=== PATIENT | female | born 1945 | race Caucasian/White ===

== ENCOUNTER 2019-12-01 08:09 | Outpatient (REF) | payer MEDICARE, SELFPAY ==
[2019-12-01 10:24] LABS: Hematocrit 43.7 % (37-47); Hemoglobin 14.7 g/dl (12.0-16.0); Mean Corpuscular HGB Conc 33.6 g/dl (31.0-35.0); Mean Corpuscular Volume 101.2 fL (80-98); Mean Platelet Volume 10.8 fL (9.4-12.3); Platelet Count 231 X10*3/uL (160-400); Red Blood Count 4.32 X10*6/uL (4.20-5.50); Red Cell Distribution Width 12.4 % (11.0-16.0); White Blood Count 6.2 X10*3/uL (4.8-10.8)
[2019-12-01 10:48] LABS: Glucose Urine UA NEG (NEG); Leukocyte Esterase Urine 1+ (NEG); Nitrite Urine NEG (NEG); Urine Blood NEG (NEG); Urine Ketones NEG (NEG); Urine Protein NEG (NEG-TRACE)
[2019-12-01 10:50] LABS: Appearance Urine HAZY; Color Urine YELLOW
[2019-12-01 10:53] LABS: Alanine Aminotransferase 21 U/L (0-31); Albumin Level 4.1 g/dL (3.5-5.0); Alkaline Phosphatase 76 U/L (39-117); Anion Gap 12 (12-20); Aspartate Amino Transferase 19 U/L (5-31); Bilirubin Total 0.7 mg/dL (0.0-1.0); Blood Urea Nitrogen 20 mg/dL (9-16); Carbon Dioxide 27 mmol/L (22-29); Chloride 106 mmol/L (96-108); Cholesterol 199 mg/dL; Estimated Glomerular Filt Rate > 60; Glucose Random 95 mg/dL (60-115); HDL Cholesterol 65 mg/dL; LDL Cholesterol Calculated 122 mg/dl; Potassium 4.2 mmol/l (3.3-5.1); Sodium 141 mmol/L (135-145); Total Protein 7.3 g/dL (6.5-8.0); Triglycerides 63 mg/dL
[2019-12-01 10:54] LABS: Thyroid Stimulating Hormone 1.88 mIU/mL (0.32-4.0); Vitamin D 25-OH Total 41.3 ng/mL (>30)
[2019-12-01 11:18] LABS: Bacteria Urine TRACE /LPF; Mucus Urine TRACE /LPF; RBC Urine 0 /HPF (0); Urine Talc Crystals 4+ /LPF; WBC Urine 0 /HPF (0-4)
== END 2019-12-01 08:10 | disposition home or self-care (01) ==
LOC: HO.10HDL 08:09
PROVIDERS: Visit Provider Internal Medicine
DX: I10 Essential (primary) hypertension (principal); E78.00 Pure hypercholesterolemia, unspecified; M85.89 Other specified disorders of bone density and structure, multiple sites; Z78.0 Asymptomatic menopausal state
CPT/HCPCS: 36415; 80053; 80061; 81001; 82306; 84443; 85027

== ENCOUNTER 2019-12-29 09:36 | Outpatient (REF) | payer MEDICARE, SELFPAY ==
--- NOTE | 2019-12-29 09:42 | MM_ITS ---
EXAMINATION: BONE DENSITOMETRY CLINICAL INDICATION: Other specified disorders of bone density and structure. COMPARISON: Previous BD dated 07/27/2014 and baseline BD dated 12/07/2007. TECHNIQUE: Using a Solarmass DXA System (software version: 13.1) manufactured by [employer], dual-energy x-ray absorptiometry was performed of the lumbar spine and right hip. The images are of good technical quality. Summary results are attached. FINDINGS: AP SPINE L1-L4: Current: BMD 1.111 g/cm2, Z-score 1.2, T-score -0.6, normal, 1.5% increase from previous, 1.5% decrease from baseline (<5% change is not significant). Prior: BMD 1.095 g/cm2. Baseline: BMD 1.128 g/cm2. RIGHT FEMUR, NECK: Current: BMD 0.803 g/cm2, Z-score 0.2, T-score -1.7, osteopenia. Prior: BMD 0.794 g/cm2. Baseline: BMD 0.794 g/cm2. RIGHT FEMUR, TOTAL: Current: BMD 0.779 g/cm2, Z-score -0.1, T-score -1.8, osteopenia, 6.0% increase from previous, 6.4% decrease from baseline (<5% change is not significant). Prior: BMD 0.735 g/cm2. Baseline: BMD 0.832 g/cm2. IDENTIFIED RISK FACTORS: Osteoporosis. Early menopause, secondary osteoporosis, hysterectomy, bilateral oophorectomy. HISTORY OF FRACTURE: None listed. MEDICATIONS: Calcium supplements or multivitamin, vitamin D. MM/XR DEXA axial skeleton IMPRESSION: 1. DIAGNOSIS: Osteopenia based on the lowest T-score value of -1.8 in the total femur applying World Health Organization criteria. 2. 10-YEAR FRACTURE RISK PREDICTION, FRAX: Major osteoporotic fracture (clinical spine, forearm, hip or shoulder) 11.5%. Hip fracture 2.5%. 3. Treatment Recommendations: NOF guidelines recommend consideration for treatment in postmenopausal women and men age 50 and older presenting with the following: -A hip or vertebral (clinical or morphometric) fracture. -T-score less than or equal to -2.5 at the femoral neck or spine after appropriate evaluation to exclude secondary causes. -Low bone mass at the hip or spine and a 10-year fracture probability by FRAX of greater than or equal to 3% for hip fracture or greater than or equal to 20% for major osteoporotic fracture based on the [place] adapted WHO algorithm. 4. Other Recommendations: All treatment decisions require clinical judgment and consideration of individual patient factors, including patient preferences, comorbidities, previous drug use, risk factors not captured in the FRAX model (e.g. frailty, falls, vitamin D deficiency, increased bone turnover, interval significant decline in bone density) and possible under or overestimation of fracture risk by FRAX. Additional medical evaluation for secondary cause of low bone mineral density may be appropriate. FUTURE SCAN RECOMMENDATION: People with diagnosed cases of osteoporosis or at high risk for fracture should have regular bone mineral density tests. For patients eligible for Medicare, routine testing is allowed once every 2 years. The testing frequency can be increased to one year for patients who have rapidly progressing disease, those who are receiving or discontinuing medical therapy to restore bone mass, or have additional risk factors.
== END 2019-12-29 09:37 | disposition home or self-care (01) ==
LOC: HO.MAMMO 09:36
PROVIDERS: Visit Provider Internal Medicine
DX: M85.89 Other specified disorders of bone density and structure, multiple sites (principal); Z78.0 Asymptomatic menopausal state
CPT/HCPCS: 77080

== ENCOUNTER 2020-01-18 08:39 | Outpatient (REF) | payer MEDICARE, SELFPAY ==
[2020-01-18 10:42] LABS: Anion Gap 11 (12-20); Blood Urea Nitrogen 16 mg/dL (9-16); Calcium 9.2 mg/dL (8.4-10.2); Carbon Dioxide 29 mmol/L (22-29); Chloride 105 mmol/L (96-108); Estimated Glomerular Filt Rate > 60; Glucose Random 74 mg/dL (60-115); Potassium 3.9 mmol/l (3.3-5.1); Sodium 141 mmol/L (135-145)
== END 2020-01-18 08:40 | disposition home or self-care (01) ==
LOC: HO.10HDL 08:39
PROVIDERS: Visit Provider Internal Medicine
DX: I10 Essential (primary) hypertension (principal)
CPT/HCPCS: 80048

== ENCOUNTER 2020-07-09 08:35 | Outpatient (REF) | payer MEDICARE, SELFPAY ==
[2020-07-09 10:26] LABS: Appearance Urine CLEAR; Color Urine YELLOW; Glucose Urine UA NEG (NEG); Leukocyte Esterase Urine 2+ (NEG); Nitrite Urine NEG (NEG); PH 6.5 (5.0-8.0); Urine Blood NEG (NEG); Urine Ketones NEG (NEG); Urine Protein NEG (NEG-TRACE)
[2020-07-09 10:27] LABS: MANUAL DIFF FLAG NO
[2020-07-09 10:36] LABS: Basophils Percent Auto 0.5 % (0-2); Eosinophils Absolute Auto 0.1 X10*3/uL (0.0-0.4); Eosinophils Percent Auto 1.6 % (0-4); Hematocrit 42.7 % (37-47); Hemoglobin 14.3 g/dl (12.0-16.0); Imm Gran Abs Auto 0.02 X10*3/uL (0.00-0.03); Imm Gran Pct Auto 0.4 % (0.0-0.4); Lymphocytes Absolute Auto 2.4 X10*3/uL (1.2-4.9); Mean Corpuscular HGB Conc 33.5 g/dl (31.0-35.0); Mean Corpuscular Volume 101.4 fL (80-98); Mean Platelet Volume 10.7 fL (9.4-12.3); Monocytes Absolute Auto 0.4 X10*3/uL (0.1-1.2); Monocytes Percent Auto 7.3 % (2-11); Neutrophils Absolute Auto 2.7 X10*3/uL (2.0-8.3); Neutrophils Percent Auto 48.2 % (45-73); Platelet Count 228 X10*3/uL (160-400); Red Blood Count 4.21 X10*6/uL (4.20-5.50); Red Cell Distribution Width 12.2 % (11.0-16.0); White Blood Count 5.6 X10*3/uL (4.8-10.8)
[2020-07-09 10:51] LABS: Alanine Aminotransferase 17 U/L (0-31); Alkaline Phosphatase 72 U/L (39-117); Anion Gap 13 (12-20); Aspartate Amino Transferase 15 U/L (5-31); Bilirubin Total 0.7 mg/dL (0.0-1.0); Blood Urea Nitrogen 17 mg/dL (9-16); Calcium 9.2 mg/dL (8.4-10.2); Carbon Dioxide 24 mmol/L (22-29); Chloride 107 mmol/L (96-108); Cholesterol 201 mg/dL; Estimated Glomerular Filt Rate > 60; Glucose Fasting 89 mg/dL (60-99); HDL Cholesterol 65 mg/dL; LDL Cholesterol Calculated 126 mg/dl; Potassium 4.2 mmol/L (3.3-5.1); Sodium 140 mmol/L (135-145); Total Protein 7.3 g/dL (6.5-8.0); Triglycerides 53 mg/dL
[2020-07-09 10:56] LABS: Bacteria Urine TRACE /LPF; RBC Urine 0 /HPF (0); Squamous Epithelial Cell Urine 1+ /LPF
[2020-07-09 11:14] LABS: Thyroid Stimulating Hormone 1.39 uIU/mL (0.32-4.0); Vitamin D 25-OH Total 48.2 ng/mL (>30)
== END 2020-07-09 08:36 | disposition home or self-care (01) ==
LOC: HO.10HDL 08:35
PROVIDERS: Visit Provider Internal Medicine
DX: I10 Essential (primary) hypertension (principal); E78.00 Pure hypercholesterolemia, unspecified; E55.9 Vitamin D deficiency, unspecified
CPT/HCPCS: 36415; 80053; 80061; 81001; 82306; 84443; 85025

== ENCOUNTER 2021-01-14 08:16 | Outpatient (REF) | payer MEDICARE, SELFPAY ==
[2021-01-14 10:32] LABS: Anion Gap 13 (12-20); Blood Urea Nitrogen 17 mg/dL (9-16); Calcium 9.6 mg/dL (8.4-10.2); Carbon Dioxide 26 mmol/L (22-29); Chloride 106 mmol/L (96-108); Estimated Glomerular Filt Rate > 60; Glucose Fasting 92 mg/dL (60-99); Potassium 4.2 mmol/L (3.3-5.1); Sodium 141 mmol/L (135-145)
== END 2021-01-14 08:17 | disposition home or self-care (01) ==
LOC: HO.10HDL 08:16
PROVIDERS: Visit Provider Internal Medicine
DX: I10 Essential (primary) hypertension (principal)
CPT/HCPCS: 36415; 80048

== ENCOUNTER 2021-07-16 07:47 | Outpatient (REF) | payer MEDICARE, SELFPAY ==
[2021-07-16 10:33] LABS: MANUAL DIFF FLAG NO
[2021-07-16 10:44] LABS: Basophils Percent Auto 0.5 % (0-2); Eosinophils Absolute Auto 0.1 X10*3/uL (0.0-0.4); Eosinophils Percent Auto 1.8 % (0-4); Hematocrit 43.6 % (37.0-47.0); Hemoglobin 14.4 g/dl (12.0-16.0); Imm Gran Abs Auto 0.01 X10*3/uL (0.00-0.03); Imm Gran Pct Auto 0.2 % (0.0-0.4); Lymphocytes Absolute Auto 2.5 X10*3/uL (1.2-4.9); Lymphocytes Percent Auto 40.7 % (20-40); Mean Corpuscular Hemoglobin 33.6 pg (27.0-33.0); Mean Corpuscular Volume 101.9 fL (80.0-98.0); Mean Platelet Volume 10.9 fL (9.4-12.3); Monocytes Absolute Auto 0.5 X10*3/uL (0.1-1.2); Monocytes Percent Auto 8.9 % (2-11); Neutrophils Absolute Auto 2.9 x10*3/uL (2.0-8.3); Neutrophils Percent Auto 47.9 % (45-73); Platelet Count 229 X10*3/uL (160-400); Red Blood Count 4.28 X10*6/uL (4.20-5.50); Red Cell Distribution Width 12.6 % (11.0-16.0); White Blood Count 6.1 X10*3/uL (4.8-10.8)
[2021-07-16 10:54] LABS: Alanine Aminotransferase 21 U/L (0-31); Alkaline Phosphatase 72 U/L (39-117); Anion Gap 11 (12-20); Appearance Urine CLEAR; Aspartate Amino Transferase 17 U/L (5-31); Bilirubin Total 0.3 mg/dL (0.0-1.0); Blood Urea Nitrogen 19 mg/dL (9-16); Calcium 9.8 mg/dL (8.4-10.2); Carbon Dioxide 26 mmol/L (22-29); Chloride 107 mmol/L (96-108); Cholesterol 209 mg/dL; Color Urine YELLOW; Estimated Glomerular Filt Rate > 60; Glucose Fasting 97 mg/dL (60-99); Glucose Urine UA NEG (NEG); HDL Cholesterol 58 mg/dL; LDL Cholesterol Calculated 137 mg/dl; Leukocyte Esterase Urine 1+ (NEG); Nitrite Urine NEG (NEG); Potassium 3.7 mmol/L (3.3-5.1); Sodium 140 mmol/L (135-145); Total Protein 7.6 g/dL (6.5-8.0); Triglycerides 70 mg/dL; Urine Blood NEG (NEG); Urine Ketones NEG (NEG); Urine Protein NEG (NEG-TRACE)
[2021-07-16 11:15] LABS: Thyroid Stimulating Hormone 3.01 uIU/mL (0.32-4.0)
[2021-07-16 11:17] LABS: Calcium Oxalate Crystals Urine 2+ /LPF; RBC Urine 0-2 /HPF (0); Squamous Epithelial Cell Urine 1+ /LPF
== END 2021-07-16 07:48 | disposition home or self-care (01) ==
LOC: HO.10HDL 07:47
PROVIDERS: Visit Provider Internal Medicine
DX: I10 Essential (primary) hypertension (principal); E78.00 Pure hypercholesterolemia, unspecified
CPT/HCPCS: 36415; 80053; 80061; 81001; 81003; 84443; 85025

== ENCOUNTER 2022-01-21 08:27 | Outpatient (REF) | payer MEDICARE, SELFPAY ==
[2022-01-21 11:21] LABS: Anion Gap 11 (12-20); Blood Urea Nitrogen 24 mg/dL (9-16); Calcium 9.4 mg/dL (8.4-10.2); Carbon Dioxide 28 mmol/L (22-29); Chloride 105 mmol/L (96-108); Estimated Glomerular Filt Rate > 60; Glucose Random 94 mg/dL (60-115); Magnesium 2.1 mg/dL (1.6-2.6); Sodium 140 mmol/L (135-145)
== END 2022-01-21 08:28 | disposition home or self-care (01) ==
LOC: HO.10HDL 08:27
PROVIDERS: Visit Provider Internal Medicine
DX: I10 Essential (primary) hypertension (principal)
CPT/HCPCS: 36415; 80048; 83735

== ENCOUNTER 2022-07-21 08:08 | Outpatient (REF) | payer MEDICARE, SELFPAY ==
[2022-07-21 10:35] LABS: MANUAL DIFF FLAG NO
[2022-07-21 10:44] LABS: Basophils Percent Auto 0.3 % (0-2); Eosinophils Absolute Auto 0.1 X10*3/uL (0.0-0.4); Eosinophils Percent Auto 1.6 % (0-4); Hematocrit 42.8 % (37.0-47.0); Hemoglobin 14.3 g/dl (12.0-16.0); Imm Gran Abs Auto 0.02 X10*3/uL (0.00-0.03); Imm Gran Pct Auto 0.3 % (0.0-0.4); Lymphocytes Absolute Auto 2.5 X10*3/uL (1.2-4.9); Lymphocytes Percent Auto 39.5 % (20-40); Mean Corpuscular HGB Conc 33.4 g/dl (31.0-35.0); Mean Corpuscular Hemoglobin 33.6 pg (27.0-33.0); Mean Corpuscular Volume 100.5 fL (80.0-98.0); Mean Platelet Volume 10.5 fL (9.4-12.3); Monocytes Absolute Auto 0.5 X10*3/uL (0.1-1.2); Monocytes Percent Auto 8.2 % (2-11); Neutrophils Absolute Auto 3.2 x10*3/uL (2.0-8.3); Neutrophils Percent Auto 50.1 % (45-73); Platelet Count 241 X10*3/uL (160-400); Red Blood Count 4.26 X10*6/uL (4.20-5.50); Red Cell Distribution Width 12.7 % (11.0-16.0); White Blood Count 6.3 X10*3/uL (4.8-10.8)
[2022-07-21 10:53] LABS: Appearance Urine Clear; Color Urine Yellow; Glucose Urine UA Negative (Negative); Leukocyte Esterase Urine Large (3+) (Negative); Nitrite Urine Negative (Negative); PH 6.5 (5.0-9.0); Specific Gravity - Urine 1.015 (1.005-1.025); UMIC TRIGGER UA YES; Urine Blood Negative (Negative); Urine Ketones Negative (Negative); Urine Protein Trace mg/dL (Neg-Trace)
[2022-07-21 10:56] LABS: Bacteria Urine None Seen (None Seen); Hyaline Casts Urine 0-2 /LPF (0-2); RBC Urine 0-2 /HPF (0-2); WBC Urine 21-50 /HPF (0-5)
[2022-07-21 11:17] LABS: Alanine Aminotransferase 18 U/L (0-31); Alkaline Phosphatase 75 U/L (39-117); Anion Gap 12 (12-20); Aspartate Amino Transferase 17 U/L (5-31); Bilirubin Total 0.9 mg/dL (0.0-1.0); Blood Urea Nitrogen 16 mg/dL (9-16); Calcium 9.4 mg/dL (8.4-10.2); Carbon Dioxide 27 mmol/L (22-29); Chloride 107 mmol/L (96-108); Cholesterol 197 mg/dL; Estimated Glomerular Filt Rate > 60; Glucose Fasting 94 mg/dL (60-99); HDL Cholesterol 60 mg/dL; LDL Cholesterol Calculated 126 mg/dl; Potassium 3.7 mmol/L (3.3-5.1); Sodium 142 mmol/L (135-145); Total Protein 7.3 g/dL (6.5-8.0); Triglycerides 55 mg/dL
[2022-07-21 11:34] LABS: Thyroid Stimulating Hormone 3.41 uIU/mL (0.32-4.0)
== END 2022-07-21 08:09 | disposition home or self-care (01) ==
LOC: HO.10HDL 08:08
PROVIDERS: Visit Provider Internal Medicine
DX: I10 Essential (primary) hypertension (principal); E78.00 Pure hypercholesterolemia, unspecified; E55.9 Vitamin D deficiency, unspecified
CPT/HCPCS: 36415; 80053; 80061; 81001; 82306; 84443; 85025

== ENCOUNTER 2023-02-17 08:17 | Outpatient (REF) | payer MEDICARE, SELFPAY ==
[2023-02-17 08:44] LABS: MANUAL DIFF FLAG NO
[2023-02-17 09:10] LABS: Basophils Percent Auto 0.4 % (0-2); Eosinophils Absolute Auto 0.1 X10*3/uL (0.0-0.4); Eosinophils Percent Auto 1.9 % (0-4); Hematocrit 42.7 % (37.0-47.0); Hemoglobin 14.4 g/dl (12.0-16.0); Imm Gran Abs Auto 0.02 X10*3/uL (0.00-0.03); Imm Gran Pct Auto 0.4 % (0.0-0.4); Lymphocytes Percent Auto 35.6 % (20-40); Mean Corpuscular HGB Conc 33.7 g/dl (31.0-35.0); Mean Corpuscular Volume 100.9 fL (80.0-98.0); Monocytes Absolute Auto 0.5 X10*3/uL (0.1-1.2); Monocytes Percent Auto 8.1 % (2-11); Neutrophils Absolute Auto 3.1 x10*3/uL (2.0-8.3); Neutrophils Percent Auto 53.6 % (45-73); Platelet Count 250 X10*3/uL (160-400); Red Blood Count 4.23 X10*6/uL (4.20-5.50); Red Cell Distribution Width 12.6 % (11.0-16.0); White Blood Count 5.7 X10*3/uL (4.8-10.8)
[2023-02-17 09:12] LABS: Appearance Urine Clear; Color Urine Yellow; Glucose Urine UA Negative (Negative); Leukocyte Esterase Urine Moderate (2+) (Negative); Nitrite Urine Negative (Negative); Specific Gravity - Urine 1.015 (1.005-1.025); UMIC TRIGGER UACC YES; Urine Blood Negative (Negative); Urine Ketones Negative (Negative); Urine Protein Negative (Neg-Trace)
[2023-02-17 09:15] LABS: Bacteria Urine None Seen (None Seen); Hyaline Casts Urine 0-2 /LPF (0-2); RBC Urine 0-2 /HPF (0-2); Squamous Epithelial Cell Urine 0-2 /HPF (0-2); UACC Culture Trigger YES
[2023-02-17 09:51] LABS: Alanine Aminotransferase 16 U/L (0-31); Alkaline Phosphatase 70 U/L (39-117); Anion Gap 10 (12-20); Aspartate Amino Transferase 17 U/L (5-31); Bilirubin Total 0.7 mg/dL (0.0-1.0); Blood Urea Nitrogen 16 mg/dL (9-16); Calcium 9.6 mg/dL (8.4-10.2); Carbon Dioxide 27 mmol/L (22-29); Chloride 109 mmol/L (96-108); Cholesterol 199 mg/dL (<200); Estimated Glomerular Filt Rate > 60; Glucose Random 102 mg/dL (60-115); HDL Cholesterol 66 mg/dL (>40); LDL Cholesterol Calculated 122 mg/dL (<100); Potassium 3.6 mmol/L (3.3-5.1); Sodium 142 mmol/L (135-145); Total Protein 7.5 g/dL (6.5-8.0); Triglycerides 58 mg/dL (<150)
[2023-02-17 10:23] LABS: TSH reflex Free T4 2.46 uIU/mL (0.32-4.0)
== END 2023-02-17 08:18 | disposition home or self-care (01) ==
LOC: HO.LAB 08:17
PROVIDERS: PCP Internal Medicine; Visit Provider Internal Medicine
DX: E78.00 Pure hypercholesterolemia, unspecified (principal); I10 Essential (primary) hypertension; M15.9 Polyosteoarthritis, unspecified; R82.90 Unspecified abnormal findings in urine
CPT/HCPCS: 36415; 80053; 80061; 81001; 84443; 85025; 87086

== ENCOUNTER 2023-10-19 07:24 | Outpatient (REF) | payer MEDICARE, SELFPAY ==
[2023-10-19 08:58] LABS: Anion Gap 13 (12-20); Blood Urea Nitrogen 22 mg/dL (9-16); Calcium 9.5 mg/dL (8.4-10.2); Carbon Dioxide 25 mmol/L (22-29); Chloride 107 mmol/L (96-108); Estimated Glomerular Filt Rate > 60; Glucose Random 108 mg/dL (60-115); Potassium 3.5 mmol/L (3.3-5.1); Sodium 141 mmol/L (135-145)
== END 2023-10-19 07:25 | disposition home or self-care (01) ==
LOC: HO.LAB 07:24
PROVIDERS: PCP Internal Medicine; Visit Provider Internal Medicine
DX: I10 Essential (primary) hypertension (principal)
CPT/HCPCS: 36415; 80048

== ENCOUNTER 2023-10-28 07:08 | Outpatient (REF) | payer MEDICARE, SELFPAY ==
[2023-10-28 07:23] LABS: MANUAL DIFF FLAG NO
[2023-10-28 07:49] LABS: Basophils Percent Auto 0.5 % (0-2); Eosinophils Absolute Auto 0.1 X10*3/uL (0.0-0.4); Eosinophils Percent Auto 1.1 % (0-4); Hematocrit 41.4 % (37.0-47.0); Hemoglobin 14.1 g/dl (12.0-16.0); Imm Gran Abs Auto 0.01 X10*3/uL (0.00-0.03); Imm Gran Pct Auto 0.2 % (0.0-0.4); Lymphocytes Absolute Auto 1.8 X10*3/uL (1.2-4.9); Lymphocytes Percent Auto 27.7 % (20-40); Mean Corpuscular HGB Conc 34.1 g/dl (31.0-35.0); Mean Corpuscular Hemoglobin 34.6 pg (27.0-33.0); Mean Corpuscular Volume 101.5 fL (80.0-98.0); Mean Platelet Volume 9.8 fL (9.4-12.3); Monocytes Absolute Auto 0.5 X10*3/uL (0.1-1.2); Monocytes Percent Auto 7.3 % (2-11); Neutrophils Absolute Auto 4.1 x10*3/uL (2.0-8.3); Neutrophils Percent Auto 63.2 % (45-73); Platelet Count 229 X10*3/uL (160-400); Red Blood Count 4.08 X10*6/uL (4.20-5.50); Red Cell Distribution Width 12.8 % (11.0-16.0); White Blood Count 6.5 X10*3/uL (4.8-10.8)
[2023-10-28 07:57] LABS: Estimated Average Glucose 120 mg/dL; Hemoglobin A1c % 5.8 % (<6.0)
[2023-10-28 08:14] LABS: Alanine Aminotransferase 35 U/L (0-31); Albumin Level 3.9 g/dL (3.5-5.0); Alkaline Phosphatase 72 U/L (39-117); Aspartate Amino Transferase 23 U/L (5-31); Bilirubin Direct 0.2 mg/dL (0.0-0.5); Bilirubin Total 0.7 mg/dL (0.0-1.0); Magnesium 2.2 mg/dL (1.6-2.6); Total Protein 6.9 g/dL (6.5-8.0)
[2023-10-28 08:29] LABS: Free T4 (Free Thyroxine) 1.28 ng/dL (0.71-1.85); Thyroid Stimulating Hormone 2.08 uIU/mL (0.32-4.0)
== END 2023-10-28 07:09 | disposition home or self-care (01) ==
LOC: HO.LAB 07:08
PROVIDERS: PCP Internal Medicine; Visit Provider Internal Medicine
DX: I10 Essential (primary) hypertension (principal); R73.01 Impaired fasting glucose
CPT/HCPCS: 36415; 80076; 83036; 83735; 84439; 84443; 85025

== ENCOUNTER 2024-04-11 13:22 | Outpatient (REF) | payer MEDICARE, SELFPAY ==
--- NOTE | ~2024-04-11 | MM_ITS ---
EXAMINATION: DXA BONE DENSITY AXIAL HISTORY: Estrogen deficiency TECHNIQUE: Pinterest Dual energy absorptiometry (DEXA) of the lumbar spine, total right hip, and femoral neck was performed. COMPARISON: Comparison is made with the prior examination dated 12/29/2019. FINDINGS: The bone mineral density of the lumbar spine is 1.085 with a T-score of -0.8, and a Z-score of 1.2. This represents a BMD change of -2.3% compared to the prior exam. This is not statistically significant. The bone mineral density of the right total hip is 0.771 with a T-score of -1.9, and a Z-score of 0.2. This represents BMD change of -1.0% compared to the prior exam. This is not statistically significant. The bone mineral density of the right femoral neck is 0.917 with a T-score of -0.9, and a Z-score of 1.3. This represents BMD change of 14.2% compared to the prior exam. FRACTURE RISK: The FRAX index suggests a ten year probability of major osteoporotic fracture of 9.7%, and of hip fracture 1.7%. MM/XR DEXA axial skeleton IMPRESSION: Based on bone mineral density, and according to World Health Organization (WHO) criteria, the diagnosis is consistent with osteopenia. All bone density values are in grams per centimeter squared (g/cm2). Statistically, 68% of repeat scans fall within 1 SD (+/- 0.010 g/cm2 for AP spine L1-L4) and 1 SD (+/- 0.012 g/cm2 for femur total) FRAX is a trademark of the [employer]'s [facility], a World Health Organization (WHO) Collaborating Center. Electronically signed by: Tucker Mays MD 04/11/2024 02:25 PM BROWN
--- OUTSIDE RECORDS SUMMARY | 2024-04-11 16:25 | XMS_ITS | Clinical Summary ---
Author Organization Patient Business Ser [facility] Address [address] [place] [address] Care Team Providers Care Pattern And Chain Maker Name Role Phone Rui Newby MD Primary Care Provider [phone] Encounters Date Type Department Care Team Description 01/26/[address] [facility] - Main Lab [address] [facility] [place] [address] Lino Paige MD Encounter for gynecological examination (general) (routine) without abnormal findings from Last 3 Months Social History Tobacco Use Types Packs/Day Years Used Date Smoking Tobacco: Never Assessed Comments No Sex and Gender Information Value Date Recorded Sex Assigned at Not on file Legal Sex Female 11:22 AM EST Gender Identity Not on file Sexual Orientation Not on file Obstetrics History Para Term AB IAB SAB Ectopic Multiple Livin g Live Births 3 Last Filed Vital Signs Vital Sign Reading Time Taken Comments Blood Pressure - - Pulse - - Temperature - - Respiratory Rate - - Oxygen Saturation - - Inhaled Oxygen Concentration - - Weight 59 kg (130 lb) 01/04/2024 11:26 AM EST Height 165.1 cm (5' 5 ) 01/04/2024 11:26 AM EST Body Mass Index 21.63 01/04/2024 11:26 AM EST Plan of Treatment Health Maintenance Due Date Last Done Comments Cholesterol Screening (Lipid Panel) 03/16/2020 Depression Screening 03/16/2020 Falls Risk Assessment 03/16/2020 Hepatitis C Screening 03/16/2020 Medicare Annual Wellness Visit 03/16/2020 Osteoporosis Screening (Bone Density Screening) 03/16/2020 Social Influencers of Health Screening 03/16/2020 RSV Immunization Patients 60+ Years Old (1 - 1-dose 75+ series) 2020 DTaP,Tdap,and Td Vaccines (3 - Td or Tdap) 04/19/2023 04/18/2013, 03/26/2011 COVID-19 Vaccine (5 - season) 2023 01/05/2022, 12/31/2020, 05/08/2020, Additional history exists Hypertension/CHF/CAD Annual BMP Blood Test 02/18/2024 02/17/2023, 07/16/2021 Pneumococcal Vaccine: 50+ Years Completed 11/05/2014, 03/26/2011 Influenza Vaccine Completed 10/22/2023, , 12/15/2021, Additional history exists Zoster Vaccines Completed 01/03/2024, 05/16, 10/14/2011 Breast Cancer Screening Discontinued 01/04/20, 12/29/2022, 12/25/2021, Additional history exists HIB Vaccines Aged Out No longer eligi ble based on patient's age to complete this topic HPV Vaccines Aged Out No longer eligi ble based on patient's age to complete this topic Hepatitis A Vaccines Aged Out No long er eligible based on patient's age to complete this topic Hepatitis B Vaccines Aged Out No long er eligible based on patient's age to complete this topic IPV Vaccines Aged Out No longer eligi ble based on patient's age to complete this topic MMR Vaccines Aged Out No longer eligi ble based on patient's age to complete this topic Meningococcal ACWY Vaccine Aged Out N o longer eligible based on patient's age to complete this topic Meningococcal B Vacine Aged Out No lo nger eligible based on patient's age to complete this topic RSV Immunization Patients Under 20 months Aged Out No longer eligible based on patient's age to complete this topic Varicella Vaccines Aged Out No longer eligible based on patient's age to complete this topic Procedures Procedure Name Priority Date/Time Associated Diagnosis Comments PAP SMEAR Routine 01/26/2024 12:00 AM EST Encounter for gynecological examination (general) (routine) without abnormal findings MG MAMMO DIGITAL SCREENING W VICTOR MANUEL BILAT Routine 01/04/2024 1:43 PM EST Encounter for screening mammogram for breast cancer from Last 3 Months or Most Recently Relevant to Health Maintenance Results * Pap smear (01/26/2024 12:00 AM EST) Interpretation Negative for intraepithelial lesion or malignancy 02/01/2024 5:50 PM EST [facility] General Categorization Negative 02/01/2024 5:50 PM EST [facility] Specimen Adequacy Satisfactory for evaluation 02/01/2024 5:50 PM EST [facility] Pap Methodology Liquid Based Pap Test 02/01/2024 5:50 PM EST [facility] Disclaimer The Pap test is a screening test which carries an inherent false negative rate. These test results should be correlated with the patient's clinical findings and history. This Pap test was processed using an automated screening system. Technical cytopathology services provided by [facility], at [address] [place] [address] (CLIA # [id number]/Santiago Salas MD, Supervisor [employer].) 02/01/2024 5:50 PM EST [facility] Console Pap Interpretation Reported 02/01/2024 5:50 PM EST [facility] Brushing/Spatula Vaginal structure / Unknown 01/26/2024 01/26/2024 3:54 PM EST us Lino Paige MD LAB CYTOLOGY ORDERABLES Final Result [facility] [address] [place] [address], * MG Mammo Digital Screening w Victor Manuel bilat (01/04/2024 1:43 PM EST) Anatomical Region Laterality Modality Breast Bilateral Mammography 01/04/2024 11:4 6 AM EST Impressions 01/04/2024 11:51 AM EST No mammographic evidence of malignancy. A negative mammogram in the presence of a clinically suspicious palpable abnormality does not preclude the possibility of malignancy or alter the indications for biopsy. PQRI CPT II 3342F Code 73040, 01227 PQRI 225 CPT II 7025F TISSUE DENSITY: There are scattered areas of fibroglandular density. (BI-RADS category B) IMPRESSION: Benign. BI-RADS CATEGORY: 2 - BENIGN RECOMMENDATION: Screening bilateral mammogram is recommended in 1 year. Mammo Location: [facility], [address] [place] [address] -------- FINAL REPORT -------- Dictated By: Joseph Devlin Dictated Date: 01/04/2024 11:46 ET Assigned Physician: Joseph Devlin Reviewed and Electronically Signed By: Joseph Devlin Signed Date: 01/04/2024 11:51 ET Workstation ID: [id number] Transcribed By: Self Edit Transcribed Date: 01/04/2024 11:46 ET Narrative 01/04/2024 11:51 AM EST CLINICAL: The patient is a 78 years Female presenting for routine screening mammography. COMPARISON: Most recently 12/29/2022 and most remotely 10/08/2016. ?? TECHNIQUE: Full-field digital mammography of the breasts bilaterally consisting of tomosynthesis in MLO and CC projection is performed in the Evercam 2000-D unit. ??Computer aided detection utilizing the iCAD system was utilized. FINDINGS: The breasts are again seen to be composed of a combination of fatty and fibroglandular elements. ??Skin lesions are again seen inferiorly and laterally overlying both breasts, also demonstrated on multiple prior studies. ??There is no suspicious cluster of microcalcifications, mass, or area of architectural distortion. There is no skin thickening or nipple retraction. Procedure Note Joseph Devlin MD - 01/04/2024 CLINICAL: The patient is a 78 years Female presenting for routinescreening mammography. COMPARISON: Most recently 12/29/2022 and most remotely 10/08/2016. TECHNIQUE: Full-field digital mammography of the breasts bilaterallyconsisting of tomosynthesis in MLO and CC projection is performed in theGE Senographe 2000-D unit. Computer aided detection utilizing the iCADsystem was utilized. FINDINGS: The breasts are again seen to be composed of a combination offatty and fibroglandular elements. Skin lesions are again seen inferiorlyand laterally overlying both breasts, also demonstrated on multiple priorstudies. There is no suspicious cluster of microcalcifications, mass, orarea of architectural distortion. There is no skin thickening or nippleretraction. IMPRESSION: No mammographic evidence of malignancy. A negative mammogram in the presence of a clinically suspicious palpableabnormality does not preclude the possibility of malignancy or alter theindications for biopsy. PQRI CPT II 3342F Code 31541, 54535 PQRI 225 CPT II 7025F TISSUE DENSITY: There are scattered areas of fibroglandular density.(BI-RADS category B) IMPRESSION: Benign. BI-RADS CATEGORY: 2 - BENIGN RECOMMENDATION: Screening bilateral mammogram is recommended in 1 year. Mammo Location: [facility], [address] [place] [address] -------- FINAL REPORT -------- Dictated By: Joseph Devlin Dictated Date: 01/04/2024 11:46 ET Assigned Physician: Joseph Devlin Reviewed and Electronically Signed By: Joseph Devlin Signed Date: 01/04/2024 11:51 ET Workstation ID: [id number] Transcribed By: Self Edit Transcribed Date: 01/04/2024 11:46 ET Rui Newby MD IM BI PROCEDURES Final Result from Last 3 Months or Most Recently Relevant to Health Maintenance Insurance [employer] - [place] MEDICARE ADVANTAGE Care Teams Pattern And Chain Maker Relationship Specialty Start Date End Date Rui Newby MD [address] [place] [address] PCP - General Internal Medicine 01/04/24
--- OUTSIDE RECORDS SUMMARY | 2024-04-11 16:25 | XMS_ITS | Encounter Summary ---
Author Organization [facility] Address [address] [place] [address] Care Team Providers Care Inclined Railway Operator Name Role Phone Rui Newby MD Primary Care Provider [phone] Encounter Details Date Type Department Care Team (Latest Contact Info) Description 01/26/2024 Lab Requisition [facility] - Main Lab [address] [place] [phone] Lino Paige MD [address] [phone] Encounter for gynecological examination (general) (routine) without abnormal findings Social History Tobacco Use Types Packs/Day Years Used Date Smoking Tobacco: Never Assessed Comments No Sex and Gender Information Value Date Recorded Sex Assigned at Not on file Legal Sex Female 11:22 AM EST Gender Identity Not on file Sexual Orientation Not on file documented as of this encounter Plan of Treatment Not on file documented as of this encounter Procedures Procedure Name Priority Date/Time Associated Diagnosis Comments PAP SMEAR Routine 01/26/2024 12:00 AM EST Encounter for gynecological examination (general) (routine) without abnormal findings documented in this encounter Results * Pap smear (01/26/2024 12:00 AM EST) Interpretation Negative for intraepithelial lesion or malignancy 02/01/2024 5:50 PM EST [facility] ([facility] General Categorization Negative 02/01/2024 5:50 PM EST [facility] Specimen Adequacy Satisfactory for evaluation 02/01/2024 5:50 PM EST [facility] Pap Methodology Liquid Based Pap Test 02/01/2024 5:50 PM EST [facility] Disclaimer The Pap test is a screening test which carries an inherent false negative rate. These test results should be correlated with the patient's clinical findings and history. This Pap test was processed using an automated screening system. Technical cytopathology services provided by [facility], at [address] [place] [address] (CLIA # [id number]/Santiago Salas MD, Salvage Inspector [employer].) 02/01/2024 5:50 PM [facility] Console Pap Interpretation Reported 02/01/2024 5:50 PM [facility] Brushing/Spatula Vaginal structure / Unknown 01/26/2024 01/26/2024 3:54 PM EST us Lino Paige MD LAB CYTOLOGY ORDERABLES Final Result Performing Organization Address City/State/[facility] Co de Phone Number [facility] [address] [place] [address], documented in this encounter Visit Diagnoses Diagnosis Encounter for gynecological examination (general) (routine) without abnormal findings documented in this encounter Care Teams Inclined Railway Operator Relationship Specialty Start Date End Date Rui Newby MD [address] [place] [id number] PCP - General Internal Medicine 01/04/24 documented as of this encounter
--- OUTSIDE RECORDS SUMMARY | 2024-04-11 16:26 | XMS_ITS | Data Portability ---
Author Organization [facility], [facility] Address [address] [place] [address] Care Team Providers Care Pneumatic Tester Name Role Phone DHIRAJKIMMY CHAVIS Primary Care Provider Assessment Encounter Date Assessment Date Assessment LastModified by Organization Details LastModified Time 03/22/2024 03/22/2024 PROBLEM: Right Hip Endstage Osteoarthritis HISTORY: The patient is a pleasant 78-year-old female who presents today for evaluation of her right hip. She had previous left total hip arthroplasty performed by Dr. Loera. She reports generally very satisfied with the outcome about surgical procedure but did note she was touchdown weightbearing immediately following surgery. Patient notes 1 year or greater with ongoing symptoms. Patient lost her last fall. She notes increasing difficulty walking. Difficulty donning and doffing shoes. She utilizes a stair lift at home. She has difficulty donning and doffing shoes. The intra-articular hip injection performed on 01/07/2024. She only had a few weeks of symptom relief. She is taken Tylenol for symptom control. She is not ambulating with a cane or assistive device. The patient's hip symptom profile form was reviewed and included in the record. The patient remains symptomatic and has had unsuccessful history of appropriate conservative therapy (non-surgical medical management). Non surgical medical management has been implemented for 3 months or more to assess effectiveness. Conservative treatment as clinically appropriate for the patient? s current episode of care including, but not limited to, one or more of the following: anti-inflammatory medications, analgesics, flexibility and muscle strengthening exercises, supervised physical therapy (Activities of daily living (ADLs) diminished despite completing a plan of care), activity restrictions as is reasonable, assistive device use, weight reduction as appropriate, and therapeutic injections into the joint as appropriate PFMSH and ROS have been reviewed, updated, and is located in the patient? s chart. PAST MEDICAL HISTORY: Past medical history is significant for hypertension PAST SURGICAL HISTORY: Past surgical history includes left total hip MEDICATIONS: List is available for review in the chart . ALLERGIES: Patient reports an allergy to NKDA. Does not report an allergy to metal, latex, Iodine, tape, or adhesives. SOCIAL HISTORY: The patient is retired. She does not consume tobacco or illegal drugs. She consumes alcohol rarely. She lives alone. PHYSICAL EXAMINATION: Please see vitals recorded below Mental status: Alert and lucid. Normal insight, affect, and grooming. POWDER MIXER: Gross motor coordination is intact. No spasticity or clonus noted. Extremities: Calves are soft and non-tender. Skin intact. Palpable pedal pulses equal bilaterally. Peripheral vascular, lymphatic examination, skin, neurological coordination, reflexes, sensation are within normal limits. ORTHOPEDIC EXAMINATION: Negative SLR tests bilaterally. Full ROM of both knees without pain. Patient ambulates with a fairly antalgic gait. She has a positive Trendelenburg gait. She is upon Stinchfield test. She is pain with internal/external rotation of her hips. IMAGING: X-rays ordered, obtained, and reviewed today on [facility]: AP pelvis, Marking AP of the Right hip, and Direct Lateral of the Right Hip. Demonstrate end-stage osteoarthritis of the Right hip with bone on bone articulation. Subchondral sclerosis and osteophyte formation are visible. There is no significant dysplasia. IMPRESSION: Right hip end-stage osteoarthritis PLAN: I reviewed with the patient surgical and nonsurgical means to control symptoms. The patient had hoped to hold off on surgical intervention. However she has noted that his hip is become increasingly symptomatic. We reviewed potential surgical and treatment. We proceed with total hip arthroplasty. We discussed expected postoperative recovery infection would most likely be full weightbearing following surgical intervention. I highlighted the importance of early participation in outpatient physical therapy and goal of discharge home. She has a supportive family. The patient understands that they are at potential increased risk of delayed recovery. The patient has exhausted all conservative treatment, therapy and measures. The patient was thoroughly counseled today regarding their hip condition, its natural history and the options, both operative and non-operative. The nature of hip replacement surgery, the potential risks, benefits, and complications, the magnitude of the surgery, the intensity of postoperative recovery as well as its elective nature was explained at length today. Issues regarding lifelong dislocation, infection, and activity precautions were reviewed. The longevity of the implants was discussed. The pros and cons of the different bearing surfaces were explained. The patient understands the potential need for revision surgery within the next 15 years. The patient also understands the potential complexity of a revision situation as well. A copy of my hip replacement information packet was given. The patient will require clearance from a medical doctor prior to surgery. The patient wishes to schedule an elective total hip replacement at this time. They were educated about the goal of discharge home from the hospital and given a prescription for pre-hab physical therapy. Next planned follow-up is at the history and physical. The patient knows I will be happy to meet with them again at any time in order to review any additional questions or concerns that they might have. Patient was satisfied with this plan. I attempted to answer all of the patient's questions. [employer] speech recognition browning processor software was used to create portions of this document. An attempt at proofreading has been made to minimize errors. Please call for corrections. [email or web address] Not available 03/22/2024 17:57:07 Plan of Treatment Reminders Order Date Submit Date Provider Last Modified By Organization Details Last Modified Time Details Appointments PT BERNIE ELLIOTT 2024 11:30A M Anam Collado PT Not available Not available Not available SALOME [facility] 2024 09:30A M Lynette Robles APRN Not available Not available Not available SURGER Jackie @ [facility] 2024 07:30A M Horacio Mcmahon MD Not available Not available Not available PT INITIMayra ELLIOTT 2024 10:30A M Anam Collado, PT Not available Not available Not available PT FOLLOW -UP 2024 11:30A M Anam Collado PT Not available Not available Not available PT FOLLOW -UP 2024 11:30A M Anam Collado, PT Not available Not available Not available POST OP 15 2024 10:45A M Carlos Ricci PA-C Not available Not available Not available PT FOLLOW -UP 2024 10:00A M Anam Florek, PT Not available Not available Not available PT FOLLOW -UP 2024 03:30P M Kay Lititz, SPINDLE SETTER Not available Not available Not available PT FOLLOW -UP 2024 10:30A M Kay Khan, SPINDLE SETTER Not available Not available Not available PT FOLLOW -UP 2024 12:00P M Kay Lititz, SPINDLE SETTER Not available Not available Not available POST OP 15 2024 02:00P M CARINA WeiC Not available Not available Not available PT FOLLOW -UP 2024 10:30A M Kay Lititz, SPINDLE SETTER Not available Not available Not available PT FOLLOW -UP 2024 11:30A M Kay Khan, SPINDLE SETTER Not available Not available Not available PT FOLLOW -UP 2024 10:00A M Kay Lititz, SPINDLE SETTER Not available Not available Not available PT FOLLOW -UP 2024 10:00A M Kay Lititz, SPINDLE SETTER Not available Not available Not available PT FOLLOW -UP 2024 10:00A M Anam Collado, PT Not available Not available Not available PT FOLLOW -UP 2024 10:00A M Anam Collado, PT Not available Not available Not available PT FOLLOW -UP 2024 10:00A M Anam Mazariegosek, PT Not available Not available Not available PT FOLLOW -UP 2024 10:30A M Anam Collado, PT Not available Not available Not available PT FOLLOW -UP 2024 11:30A M Anam Collado, PT Not available Not available Not available PT FOLLOW -UP 2024 11:00A M Anam Collado, PT Not available Not available Not available Lab None record ed. Referral physic al therap ist referr al - PRE HAB RTHR 5Stren gtheni ng Lower Extrem ity Upper extrem ity to improv e streng th for transf ers with arthri tic lower extrem ity No ROM Condit ioning - statio nary bike, etc. If pt over age 55 or has any cardio pulmon lindsay histor y, call PCP first to obtain medica l cleara nce.Ga it traini ng Cane Walker Assist carrie device s for ADL's- sock puller , long shoe horn, etc. 2024 025 [email or web address] [facility] ([facility]), [address], [place], [address], 03/30/2024 13:54:08 physic al therap ist referr al - S/P RHTR 5 BEGIN POST OP PT ON 05/19/24 Gait Traini erica, Giselle thenin g, Condit ioning REY Precau tionsP lease bring this script and attach ed protoc ol with you to your physic al therap y appoin tment 2024 025 [facility] ([facility]), [address], [place], [place], [address], 03/30/2024 13:54:08 Procedures None record ed. Surgeries None record ed. Imaging XR, hip + pelvis , unilat eral, 2 or 3 view - 206, 3 views of right hip. Dr. Mcmahon' s protoc ol. 2024 025 [email or web address] [facility], [address], [address], [place], [address], 03/30/2024 13:54:08 XR, hip, unilat eral, 2 or 3 view - ROOM 202, Right Hip Pain 2024 025 [email or web address] [facility], [address], [address], [place], [address], 03/30/2024 13:54:08 XR, hip, unilat eral, 2 or 3 view - ROOM 202, Right Hip Pain 2023 024 [email or web address] [facility], [address], [address], [place], [address], 07/22/2023 11:31:45 Medication Orders None record ed. Patient TargetsNo targets recorded. Patient InstructionsNo instructions recorded. Reason for Referral Physical Therapist Referral for Osteoarthritis of right hip joint PRE HAB RTHR 05/09/24Strengthening Lower Extremity Upper extremity to improve strength for transfers with arthritic lower extremity No ROM Conditioning- stationary bike, etc. If pt over age 55 or has any cardiopulmonary history, call PCP first to obtain medical clearance.Gait training Cane WalkerAssistive devices for ADL's- sock puller, long shoe horn, etc. Referring Physician: Horacio Mcmahon, Orthopedic Surgery, Encounter Date: 03/22/2024 Physical Therapist Referral for Osteoarthritis of right hip joint S/P RHTR 05/09/24 BEGIN POST OP PT ON 05/19/24Gait Training, Strengthening, Conditioning REY PrecautionsPlease bring this script and attached protocol with you to your physical therapy appointment Referring Physician: Horacio Mcmahon, Orthopedic Surgery, Encounter Date: 03/22/2024 Results Created Date Observation Date Name Description Value Unit Range Abnormal Flag Note LastModifiedBy Organization Detail LastModifiedTime 07/22/19 24 07/22/2023 XR, hip, unila teral , 2 or 3 view http:/ [email or web address] ?Encry pted=s hAaTro YD8dLq bEUv6g %2BXZw aYqtaq 0bqfl% 2Fg9IQ a4ajBk vP9nXo QUaueC m3YtLR FvZlgJ JJ8mAn HZtai3 9e8226 AC0Kua 3uCV6H eUC8mr 84%3D INTERFACE [place] [address] [facility] [address], [place], [address], 07/22/2023 10:15:00 07/22/19 24 07/22/2023 XR, hip, unila teral , 2 or 3 view [email or web address]:/ [email or web address] ?Encry pted=s hAaTro YD8dLq bEUv6g %2BXZw aYqtaq 0bqfl% 2Fg9IQ a4ajBk vP9nXo QUaueC m3YtLR FvZlgJ JJ8mAn HZtai3 2r2060 AC0Kua 3uCV6H eUC8mr 84%3D INTERFACE [facility] [address], [place], [address], 07/22/2023 10:15:03 03/22/19 25 03/22/2024 XR, hip + pelvi s, unila teral , 2 or 3 view http:/ [email or web address] ?Encry pted=s hAaTro YD8dLq bEUv6g %2BXZw aYqtaq 0bqfl% 2Fg9IQ a4ajBk vP9nXo QUaueC m3YtLR FvZlgJ JJ8mAn HZtai3 7r2624 AC0Kqb HmBVqC uKiQtr MwF INTERFACE [facility] [address], [place], [address], 03/22/2024 09:56:01 03/22/19 25 03/22/2024 XR, hip + pelvi s, unila teral , 2 or 3 view http:/ [email or web address] ?Encry pted=s hAaTro YD8dLq bEUv6g %2BXZw aYqtaq 0bqfl% 2Fg9IQ a4ajBk vP9nXo QUaueC m3YtLR FvZlgJ JJ8mAn HZtai3 0i7035 AC0Kqb HmBVqC uKiQtr MwF INTERFACE [facility] [address] [facility] [address], [place], [address], 03/22/2024 09:56:03 Result Notes None recorded. Problems Name Problem SNOMED Code Status Onset Date Resolution Date Notes Provider Name and Address Organization Details Recorded Time Osteoarthri tis of right hip joint 5704629054348 07 Active 2024 Horacio Mcmahon MD [address], [facility] [place], [address], [facility] 07:59:37 Pain in right hip joint 8319838948029 02 Active 2024 Horacio Mcmahon MD [address], [place], [address], [place] [facility] 5 17:54:23 Problem Notes None recorded. Procedures Surgical History Date Name Laterality Status Provider Name and Address Organization Details Recorded Time 4 Hip Kenalog Injection, L/R w/US completed Carlos Ricci PA-C [address], [place], [address], [place] [facility] 01/03/2024 21:39:18 4 Hip Kenalog Injection, L/R w/US completed Carlos Ricci PA-C [address], [place], [address], [facility] 10/06/2023 14:28:48 6 Hip Surgery completed Staci Duggan [facility] 01/07/2024 10:07:16 Imaging Results Imaging Date Name Status LastModified by Organiz ation Details LastModified Time 07/22/2023 XR, hip, unilateral , 2 or 3 view completed [facility] [address], [place], [address], 07/22/2023 10:15:00 07/22/2023 XR, hip, unilateral , 2 or 3 view completed [facility] [address], [place], [address], 07/22/2023 10:15:03 03/22/2024 XR, hip + pelvis, unilateral , 2 or 3 view completed [facility] [address], [place], [address], 03/22/2024 09:56:01 03/22/2024 XR, hip + pelvis, unilateral , 2 or 3 view completed [facility] [address], [place], [address], 03/22/2024 09:56:03 Procedure Notes None recorded. Medical Equipment None Reported. Allergies No known drug allergies Medications Name Sig Start Date Stop Date Status Note LastModified by Organization Details LastModified Time amoxicillin 500 mg capsule Take 4 pills 1/2 HR prior to dental procedure 03/22 completed Not Available Not Available Not Available brimonidine 0.2 % eye drops active Not Available Not Available Not Available dorzolamide 22.3 mg-timolol 6.8 mg/mL eye drops active Not Available Not Available No t Available lisinopril 10 mg-hydrochl orothiazide 12.5 mg tablet TAKE 1 TABLET BY MOUTH DAILY active Not Available Not Available No t Available Vyzulta 0.024 % eye drops active Not Available Not Available Not Available Vitals Date Recorded Body height Body mass index (BMI) Body weight Provider Name and Address Organization Details Last Updated DateTime 07/22/2023 166.37 cm 22.1 kg/m2 78012.97 g Carlos Ricci PA-C [address] [place] [address] [address], [address], [facility] 07/22/2023 09:51:18 Date Recorded Body height Body mass index (BMI) Body weight Provider Name and Address Organization Details Last Updated DateTime 10/08/2023 166.37 cm 22.1 kg/m2 96832.97 g Bradley Andrade [facility] 10/08/2023 10:04:11 Date Recorded Body height Body mass index (BMI) Body weight Provider Name and Address Organization Details Last Updated DateTime 01/07/2024 166.37 cm 22.1 kg/m2 94675.97 g Staci Duggan [facility] 01/07/2024 10:06:04 Date Recorded Body height Body mass index (BMI) Body weight Provider Name and Address Organization Details Last Updated DateTime 03/22/2024 162.56 cm 22.5 kg/m2 47392.96 g Yamel Wells [facility] 03/22/2024 09:42:01 Social History Question Answer Notes LastModified by Organizat ion Details LastModified Time Tobacco Smoking Status Never Smoker Staci smith [facility] 01/07/2024 10:07:16 How Many Times Per Week Do You Consume Alcohol? Less Than 1 Time Per Week Information not available 01/07/2024 Do You Or Have You Ever Used E-cigarettes Or Vape? Never Used Electronic Cigarettes Information not available 01/07/2024 What Is Your Relationship Status? Information not available 01/07/2024 Do You Use Any Illicit Or Recreational Drugs? No Information not available 01/07/2024 Do You Or Have You Ever Used Any Other Forms Of Tobacco Or Nicotine? No Information not available 01/07/2024 Sex: Unknown Functional Status None recorded. Mental Status None recorded. Family History Nothing Reported. Medical History Condition Response Arthritis Y Hypertension Y Gynecological HistoryNo gynecological history recorded. Obstetrics History GPAL:G 0 P 0 0 0 0 Past Encounters Encounter ID Performer Location Encounter Start Date Encounter Closed Date Diagnosis/Indication Diagnosis SNOMED-CT Code Diagnosis ICD10 Code Diagnosis Note [id number] HERMINIO Wei [address] [place] [address] 07/22/2023 09:40:28 07/22/2023 11:05:14 Pain in right hip joint 5473335426 85104 M25.551 History of total replacement of left hip joint 3083596616 244606 Z96.642 Osteoarthr itis of right hip joint 8902232517 35052 M16.11 [id number] HERMINIO Wei [address] [place] [address] 10/08/2023 09:51:12 10/08/2023 10:40:15 Osteoarthritis of right hip joint 2686081803 00886 M16.11 [id number] HERMINIO Wei [address] [place] [address] 01/07/2024 09:53:46 02/12/2024 12:25:42 Osteoarthritis of right hip joint 6511935042 61007 M16.11 [id number] MD IVY Jordan [address] [place] [address] 03/22/2024 09:36:23 03/30/2024 13:54:07 Osteoarthritis of right hip joint 5608816947 88281 M16.11 Pain in ri ght hip joint 3139309985 93101 M25.551 History of total replacement of left hip joint 2955313040 504008 Z96.642 Health Concerns Section Related Observation LastModified by Organization Detai ls LastModified Time None Recorded Concern Status LastModified by Organization Details LastModified Time None Recorded Advance Directives Directive None Recorded Payers Encounter Date Sequence Insurance Name Policy Number Policy Kennedy Covered Member ID Kennedy Member ID Guarantor Name 07/22/2023 1 [place]MEDICARE [place] PPO) [id number] Zenaida D Hohol [id number] Zenaida Hohol 10/08/2023 1 [place] PPO) [id number] Zenaida D Hohol [id number] Zenaida Hohol 01/07/2024 1 [place] PPO) [id number] Zenaida D Hohol [id number] Zenaida Hohol 03/22/2024 1 [place]) [id number] Zenaida D Hohol [id number] Zenaida Hohol Notes Date Note Type Note Provider Name and Address Organization Details Recorded Time 07/22/2023 text/html I am seeing the patient today under the supervision of Dr. Aragon who was available but who did not see the patient.HPI:The patient's a 77-year-old female that comes in the office with complaints of discomfort about the right hip. She has a history of a left total hip replacement done by Dr. Loera in 2016 which is doing very well. Over the past year or so she has had increased discomfort of the right hip. However, the pain comes and goes. Her pain is not constant. She takes Advil with relief. The pain radiates into the groin. She is taking care of her who was diagnosed with vascular dementia.Past family, medical, social history and review of systems has been reviewed, updated and is located in the patient? s chart.Examination:T he patient is well appearing and in no apparent distress. Alert and oriented x3. Gait is symmetric. No significant swelling, warmth, erythema in either hip. Range of motion of the left hip is flexion to 90? ? ? with internal and external rotation to 20? ? ? without pain. Range of motion right hip is flexion to 90? ? ? with internal rotation at 10? ? ? next rotation of 15? ? ? with mild discomfort. Peripheral, vascular, lymphatic examination, skin, neurological, coordination, reflexes, sensation are within normal limits.X-rays ordered, obtained and reviewed at [facility] 2 views of both hips demonstrate good implant interfaces in good alignment on the left side. The right hip demonstrate severe arthritic change in zone 1.Impression:Severe right hip arthritis. History of a left total hip replacementPlan:I reviewed the x-rays and diagnosis with the patient. We discussed her options in regards to right hip. We discussed the risks, options, benefits regards to total hip arthroplasty. We discussed the surgery itself rehabilitation process. We discussed conservative management. We discussed custom home exercise program. Activity modification discussed. P.r.n. NSAIDs can be used p.o. we discussed the risks associated with NSAID use. We discussed injection therapies for the arthritic right hip. Due to the fact that she needs to take care of her , she wishes to proceed conservatively. However, she does not have severe pain to consider an intra-articular injection. I did make her an appointment to follow-up in 2 months for a possible intra-articular injection if she is more symptomatic.We discussed total hip precautions. We discussed home exercise program in regards to her left total hip replacement. Carlos Ricci PA-C [address] [facility] [address] [facility], [place], [address], [facility] 07/22/2023 10:29:12 10/08/2023 text/html I am seeing the patient today under the supervision of {{[facility]* Yin Fernández}} who was available but who did not see the patient. HPI: The patient returns for follow-up of right hip pain. The history is outlined by previous notes. The patient has recurrent pain about the right hip. Past family, medical, social history and review of systems has been reviewed, updated and is located in the patient? s chart. Examination: The patient is well appearing and in no apparent distress. Alert and oriented x3. Gait is symmetric. No significant swelling warmth or erythema about the right hip. Range of motion of the right hip is decreased in all planes. . Peripheral, vascular, lymphatic examination, skin, neurological, coordination, reflexes, sensation are within normal limits. Impression: Osteoarthritis of the right hip Plan: Reviewed diagnosis with the patient today in the office. We discussed the patient's options. We discussed the risks, options, benefits In regards toa total hip arthroplasty. We discussed the surgery itself and rehabilitation process. We discussed conservative management. Activity modification discussed. P.r.n. NSAIDs can use. We discussed the risks associated with NSAID use. I injected 40 mg of Kenalog and 2 cc of 1% lidocaine into the right hip joint using the ultrasound-guided technique under sterile conditions. The patient tolerated the injection well. Carlos Ricci PA-C [address] [place] [address] [address] [facility], [place], [address], [facility] 10/08/2023 10:11:50 01/07/2024 text/html I am seeing the patient today under the supervision of {{Salome Fernández*}} who was available but who did not see the patient. HPI: The patient returns for follow-up of right hip pain. The history is outlined by previous notes. The patient has recurrent pain about the right hip. However, she is considering her surgical options for the new year. Her and most recently . Past family, medical, social history and review of systems has been reviewed, updated and is located in the patient? s chart. Examination: The patient is well appearing and in no apparent distress. Alert and oriented x3. Gait is symmetric. No significant swelling warmth or erythema about the right hip. Range of motion of the right hip is decreased in all planes. . Peripheral, vascular, lymphatic examination, skin, neurological, coordination, reflexes, sensation are within normal limits. Impression: Osteoarthritis of the right hip Plan: Reviewed diagnosis with the patient today in the office. We discussed the patient's options. We discussed the risks, options, benefits In regards toa total hip arthroplasty. We discussed the surgery itself and rehabilitation process. We discussed conservative management. Activity modification discussed. P.r.n. NSAIDs can use. We discussed the risks associated with NSAID use. I injected 40 mg of Kenalog and 2 cc of 1% lidocaine into the right hip joint using the ultrasound-guided technique under sterile conditions. The patient tolerated the injection well. Carlos Ricci PA-C [address], [place], [address], [facility] - [facility] 01/07/2024 10:24:04 OBGyn Episode No OBEpisode recorded.
== END 2024-04-11 13:23 | disposition home or self-care (01) ==
LOC: HO.MAMMO 13:22
PROVIDERS: PCP Internal Medicine; Visit Provider Obstetrics & Gynecology
DX: Z13.820 Encounter for screening for osteoporosis (principal); Z78.0 Asymptomatic menopausal state
CPT/HCPCS: 77080

== ENCOUNTER → 2024-04-11 13:30 | Outpatient (BNV) | payer MEDICARE, SELFPAY | PROVIDERS: PCP Internal Medicine; Visit Provider Radiology Diagnostic Radiology | DX: E28.39 Other primary ovarian failure (principal) | CPT/HCPCS: 77080 ==

== ENCOUNTER 2024-08-02 07:49 | Outpatient (REF) | payer MEDICARE, SELFPAY ==
--- OUTSIDE RECORDS SUMMARY | 2024-08-02 07:57 | XMS_ITS | Clinical Summary ---
Author Organization Patient Business Ser [facility] Address [address] [place] [address] Care Team Providers Care Instructional Designer Name Role Phone uRi Newby MD Primary Care Provider [phone] Social History Tobacco Use Types Packs/Day Years [...] Influencers of Health Screening 03/16/2020 RSV Immunization Adult Patients (1 - 1-dose 75+ series) 2020 DTaP,Tdap,and Td Vaccines (3 - Td or Tdap) 04/19/2023 04/18/2013, 03/26/2011 COVID-19 Vaccine ( season) 2023 01/05/2022, 12/31/2020, 05/08/2020, Additional history [...] age to complete this topic Meningococcal B Vaccine Aged Out No l onger eligible based on patient's age to complete this topic RSV Immunization Patients Under 20 months Aged Out No longer eligible based on patient's age to complete this topic Varicella Vaccines Aged Out No longer eligible based on patient's age to complete this topic Procedures Procedure Name Priority Date/Time Associated Diagnosis Comments MG MAMMO DIGITAL SCREENING W VICTOR MANUEL BILAT Routine 01/04/2024 1:43 PM EST Encounter for screening mammogram for breast cancer from Last 3 Months or Most Recently Relevant to Health Maintenance Results * MG Mammo Digital Screening w Victor [...] for biopsy. PQRI CPT II 3342F Code 72591, 82603 PQRI 225 CPT II 7025F TISSUE DENSITY: There are scattered areas of fibroglandular density. (BI-RADS category B) IMPRESSION: Benign. BI-RADS CATEGORY: 2 - BENIGN RECOMMENDATION: Screening bilateral mammogram is recommended in 1 year. Mammo Location: [facility], [address] [place] [id number] -------- FINAL REPORT -------- Dictated By: Joseph eDvlin Dictated Date: 01/04/2024 11:46 ET Assigned Physician: Joseph Dvelin Reviewed and Electronically Signed By: Joseph Devlin Signed Date: 01/04/2024 11:51 ET Workstation ID: [id number] Transcribed By: Self Edit Transcribed Date: 01/04/2024 11:46 ET Narrative 01/04/2024 11:51 AM EST CLINICAL: The patient is a 78 years Female presenting for routine screening mammography. COMPARISON: Most recently 12/29/2022 and most remotely 10/08/2016. TECHNIQUE: Full-field digital mammography of the breasts bilaterally consisting of tomosynthesis in MLO and CC projection is performed in the frents 2000-D unit. Computer aided detection utilizing the iCAD system was utilized. FINDINGS: The breasts are again seen to be composed of a combination of fatty and fibroglandular elements. Skin lesions are again seen inferiorly and laterally overlying both breasts, also demonstrated on multiple prior studies. There is no suspicious cluster of microcalcifications, [...] MLO and CC projection is performed in thefrents 2000-D unit. Computer aided detection utilizing the [...] for biopsy. PQRI CPT II 3342F Code 08867, 54429 PQRI 225 CPT II 7025F TISSUE DENSITY: There are scattered areas of fibroglandular density.(BI-RADS category B) IMPRESSION: Benign. BI-RADS CATEGORY: 2 - BENIGN RECOMMENDATION: Screening bilateral mammogram is recommended in 1 year. Mammo Location: [facility], [address] [place] [id number] -------- FINAL REPORT -------- Dictated By: Joseph Devlin Dictated Date: 01/04/2024 11:46 ET Assigned Physician: Joseph Devlin Reviewed and Electronically Signed By: Joseph Devlin Signed Date: 01/04/2024 11:51 ET Workstation ID: [id number] Transcribed By: Self Edit Transcribed Date: 01/04/2024 11:46 ET Rui Newby MD IMG BI PROCEDURES Final Result from Last 3 Months or Most Recently Relevant to Health Maintenance Insurance [employer] - [place] MEDICARE ADVANTAGE Care Teams Instructional Designer Relationship Specialty Start Date End Date Rui Newby MD [address] [place] [address] PCP - General Internal Medicine 01/04/24
[2024-08-02 09:55] LABS: MANUAL DIFF FLAG NO
[2024-08-02 10:00] LABS: Basophils Percent Auto 0.5 % (0-2); Eosinophils Absolute Auto 0.1 X10*3/uL (0.0-0.4); Eosinophils Percent Auto 1.6 % (0-4); Hemoglobin 14.5 g/dl (12.0-16.0); Imm Gran Abs Auto 0.02 X10*3/uL (0.00-0.03); Imm Gran Pct Auto 0.3 % (0.0-0.4); Lymphocytes Absolute Auto 2.6 X10*3/uL (1.2-4.9); Lymphocytes Percent Auto 41.9 % (20-40); Mean Corpuscular HGB Conc 33.7 g/dl (31.0-35.0); Mean Corpuscular Hemoglobin 33.9 pg (27.0-33.0); Mean Corpuscular Volume 100.5 fL (80.0-98.0); Mean Platelet Volume 9.9 fL (9.4-12.3); Monocytes Absolute Auto 0.5 X10*3/uL (0.1-1.2); Monocytes Percent Auto 8.1 % (2-11); Neutrophils Percent Auto 47.6 % (45-73); Platelet Count 238 X10*3/uL (160-400); Red Blood Count 4.28 X10*6/uL (4.20-5.50); Red Cell Distribution Width 12.5 % (11.0-16.0); White Blood Count 6.3 X10*3/uL (4.8-10.8)
[2024-08-02 10:16] LABS: Estimated Average Glucose 114 mg/dL; Hemoglobin A1c % 5.6 % (<6.0)
[2024-08-02 10:27] LABS: Alanine Aminotransferase 15 U/L (0-31); Albumin Level 4.2 g/dL (3.5-5.0); Alkaline Phosphatase 74 U/L (39-117); Anion Gap 9 (12-20); Aspartate Amino Transferase 19 U/L (5-31); Bilirubin Total 0.6 mg/dL (0.0-1.0); Blood Urea Nitrogen 16 mg/dL (9-16); Calcium 9.6 mg/dL (8.4-10.2); Carbon Dioxide 29 mmol/L (22-29); Chloride 108 mmol/L (96-108); Cholesterol 208 mg/dL (<200); Estimated Glomerular Filt Rate > 60; Glucose Random 93 mg/dL (60-115); HDL Cholesterol 71 mg/dL (>40); LDL Cholesterol Calculated 124 mg/dL (<100); Potassium 3.7 mmol/L (3.3-5.1); Sodium 142 mmol/L (135-145); Total Protein 7.5 g/dL (6.5-8.0); Triglycerides 65 mg/dL (<150)
[2024-08-02 10:47] LABS: TSH reflex Free T4 3.07 uIU/mL (0.32-4.0)
== END 2024-08-02 07:50 | disposition home or self-care (01) ==
LOC: HO.10HDL 07:49
PROVIDERS: Visit Provider Internal Medicine
DX: I10 Essential (primary) hypertension (principal); M19.90 Unspecified osteoarthritis, unspecified site; R73.01 Impaired fasting glucose
CPT/HCPCS: 36415; 80053; 80061; 83036; 84443; 85025

== ENCOUNTER 2025-01-24 08:01 | Outpatient (REF) | payer MEDICARE, SELFPAY ==
[2025-01-24 11:02] LABS: Anion Gap 10 (12-20); Blood Urea Nitrogen 20 mg/dL (9-16); Calcium 9.1 mg/dL (8.4-10.2); Carbon Dioxide 27 mmol/L (22-29); Chloride 108 mmol/L (96-108); Estimated Glomerular Filt Rate > 60; Potassium 3.5 mmol/L (3.3-5.1); Sodium 141 mmol/L (135-145)
== END 2025-01-24 08:02 | disposition home or self-care (01) ==
LOC: HO.10HDL 08:01
PROVIDERS: Visit Provider Internal Medicine
DX: I10 Essential (primary) hypertension (principal)
CPT/HCPCS: 36415; 80048